=== PATIENT | female | born 1965 | race Caucasian/White ===

== ENCOUNTER 2017-08-31 02:31 | Day surgery (SDC) | payer OTHER ==
[~2017-08-31] VITALS: Ht 167.6 cm; Wt 77.6 kg
[~2017-08-31 02:31] MED LIST: NO MEDS
[2017-08-31 12:24] VITALS: BP 111/80
[2017-08-31] MEDS ORDERED: NORMOSOL R SOLN(*) 1000 ML BAG 1,000 ML IV PRN (12:55)
[2017-08-31] MEDS ORDERED: LIDOCAINE/SOD BICARB 8.4% SYR ID ONE (12:55)
[2017-08-31] MEDS ORDERED: MIDAZOLAM 2 MG/2 ML VIAL IVP PRN (12:55)
--- NOTE | 2017-08-31 13:03 | Post Operative Progress Note ---
Post Operative Progress Note Date: Aug 31, 2017 Time: 15:13 Surgeon: celeste Anesthesia: dr brown Pre-Op Diagnosis: right lower quadrant pain Post-Op Diagnosis: normal exam Procedure(s): colonoscopy TROY SIMPSON MD Aug 31, 2017 13:03
--- NOTE | 2017-08-31 13:04 | Short(Outpt) Discharge Summary ---
Discharge Summary Reason for Hosp/Final Diag: (1) Right lower quadrant pain Hospital Course & Plan: normal colonoscopy Departure Discharge to: Home Discharge Instructions Home Meds Discontinued Reported Medications [No Meds] No Conflict Check, 0 Refills 02/12/10 Diet: Regular Activity: As Tolerated TROY SIMPSON MD Aug 31, 2017 13:04
[2017-08-31] MEDS ORDERED: PROPOFOL EMUL(*) 10MG/ML 20 ML 20 ML ONE (14:33)
[2017-08-31 15:16] VITALS: BP 101/67
[2017-08-31 15:29] VITALS: BP 96/73
[2017-08-31 15:41] VITALS: BP 102/64
[2017-08-31 15:42] VITALS: BP 98/74
[2017-08-31 15:47] VITALS: BP 102/64
--- NOTE | 2017-09-01 15:23 | OPERATIVE REPORT 1 ---
EVENT DATE: August 31, 2017 SURGEON: Hayden Quinones MD ANESTHESIOLOGIST: Chuck Burks MD ANESTHESIA: Sedation. PREOPERATIVE DIAGNOSIS Right lower quadrant pain. POSTOPERATIVE DIAGNOSIS Normal-appearing colonoscopic examination. PROCEDURE PERFORMED Colonoscopy. DESCRIPTION OF PROCEDURE The patient was placed in the left lateral decubitus position and given intravenous sedation. Anal examination was unremarkable. Rectum was negative. A flexible colonoscopy was inserted and advanced to the cecum. She had an excellent bowel prep. Ileocecal valve and base of the cecum were identified. The scope was slowly withdrawn. Care was taken to look behind the haustral folds. No abnormalities were noted in the cecum, right colon, transverse, descending, or sigmoid colon. Rectum was normal. The scope was retroflexed, and that appeared to be normal. [facility]
== END 2017-08-31 16:00 ==
LOC: OR 02:31
PROVIDERS: ATTEND Surgery
DX: R10.31 Right lower quadrant pain (principal)
CPT/HCPCS: 45378; J2704

== ENCOUNTER → 2017-09-07 | Outpatient (CLI) | payer OTHER ==
[~2017-09-07] MED LIST changes: +IOPAMIDOL 76% 75 ML INFUS BTL 75 ML ONE; +NS 0.9% 50 ML VIAL 50 ML ONE
--- NOTE | 2017-09-07 09:33 | RADIOLOGY IMAGING REPORT ---
FACILITY: [facility] - [place] PATIENT NAME: Isabel Curry : 1965 MR: [id number] V: [id number] EXAM DATE: ORDERING PHYSICIAN: TROY SIMPSON TECHNOLOGIST: Location: [facility] Patient: Isabel Curry : 1965 Visit/Account:[id number] Date of Sevice: 09/07/2017 ABDOMEN/PELVIS W/WO CONTRAST HISTORY: Right lower quadrant pain TECHNIQUE: Axial images acquired through the abdomen/pelvis both with and without IV contrast.. Xu nal and sagittal reformatting also performed. Dose Lowering Technique One of the following dose optimization techniques was utilized in the performance of this exam: Autom ated exposure control; adjustment of the mA and/or kV according to the patient's size; or use of an i terative reconstruction technique. Specific details can be referenced in the facility's radiology C T exam operational policy. CONTRAST: 75 mL Isovue-370 COMPARISON: February 12, 2010 FINDINGS: Visualized lung bases: Negative. Hepatobiliary: Negative. Spleen: Negative. Adrenals: Negative. Pancreas: Negative. Kidneys ureters and bladder: There is a 1 mm nonobstructing calculus upper pole of the left kidney. The bladder is decompressed not ideally evaluated Genitalia: There is an anteverted uterus. The endometrial stripe measures 1.4 cm in thickness which would be abnormally thickened in a postmenopausal patient. Clinical correlation needed. There is 1 .5 cm cyst in the left ovary. The remainder the left ovary appears mildly prominent. GI: There is no evidence of bowel wall thickening or bowel obstruction. No evidence of acute divert iculitis. The appendix is visualized and does not appear thickened. Vessels/spaces/nodes: There are several mesenteric lymph nodes identified in the right lower quadran t that do not appear enlarged. These were present on the prior CT from 2009. Bones/soft tissues: Negative. Additional findings: None pertinent. IMPRESSION: Is no evidence of acute appendicitis, acute diverticulitis or bowel obstruction There is a 1 mm nonobstructing calculus upper pole the left kidney The endometrial stripe measures 1.4 cm in thickness which be abnormally thickened in a postmenopausal patient. Clinical correlation needed. The left ovary appears mild prominent and contains a 1.5 cm cyst. Further evaluation with pelvic ultrasound may be of value depending upon the clinical presenta tion There are several small mesenteric lymph nodes in the right lower quadrant although were present on t he prior CT from 2009 and are of doubtful significance Report Dictated By: Kathi Bartholomew MD at 09/07/2017 9:16 AM Report E-Signed By: Kathi Bartholomew MD at 09/07/2017 9:27 AM WSN:[email or web address]
== END ==
LOC: CT 00:59
PROVIDERS: ATTEND Surgery
DX: N20.0 Calculus of kidney (principal); N83.202 Unspecified ovarian cyst, left side
CPT/HCPCS: 74178; J7050; Q9967

== ENCOUNTER → 2018-07-19 | Outpatient (CLI) | payer OTHER ==
[~2018-07-19] MED LIST changes: -IOPAMIDOL 76% 75 ML INFUS BTL 75 ML ONE; -NS 0.9% 50 ML VIAL 50 ML ONE
== END ==
LOC: LAB 16:07
PROVIDERS: ATTEND Advanced Practice Midwife
DX: R73.09 Other abnormal glucose (principal)
CPT/HCPCS: 36415; 83036